=== PATIENT | male | born 1975 | race African-American/Black ===

== ENCOUNTER 2019-05-31 07:39 | Emergency (ER) | payer MEDICAID ==
[~2019-05-31] VITALS: Ht 172.7 cm; Wt 73.0 kg
[2019-05-31 08:46] LABS: BASOPHILS % 0.8 % (0.0-2.0); EOSINOPHILS % 0.6 % (0.0-5.0); HEMATOCRIT. 46.7 % (42.0-52.0); HEMOGLOBIN. 16.6 g/dL (14.0-18.0); LYMPHOCYTES % 28.5 % (20.0-50.0); MEAN CORPUSCULAR HEMOGLOBIN 32.9 pg (28.0-32.0); MEAN CORPUSCULAR VOLUME 92.6 fL (80.0-94.0); MEAN PLATELET VOLUME 8.4 fl (7.4-10.4); MONOCYTES % 9.6 % (2.0-8.0); NEUTROPHILS % 60.5 % (40.0-76.0); PLATELET 249 x1000/uL (130-400); RED BLOOD CELL COUNT 5.05 mill/uL (4.7-6.1); RED CELL DISTRIBUTION WIDTH 13.2 % (11.6-14.6)
[2019-05-31 10:08] LABS: CHLORIDE 106 mEq/L (98-107)
[2019-05-31] MEDS ORDERED: MORPHINE SULFATE 4 MG/ML CPJ (NOT FOR IM USE) IV ONE ×3 (11:15→19:15)
[2019-05-31] MEDS ORDERED: DEXAMETHASONE 4MG/ML 1ML VIAL IV ONE (11:15)
[2019-05-31] MEDS ORDERED: IOHEXOL-300 100 ML BOTTLE ONE (14:51)
[2019-05-31] MEDS ORDERED: PIPERACILLIN/TAZ 3.375G PREMIX 50 ML IV ONE ×2 (15:00→19:15)
[2019-05-31] MEDS ORDERED: VANCOMYCIN 1 G PREMIX 200 ML IV ONE (15:00)
[2019-05-31] MEDS ORDERED: FENTANYL CITRATE/PF 50MCG/ML 2ML VIAL IV ONE (15:15)
[2019-05-31] MEDS ORDERED: DEXT 5%/0.45% NACL KCL 20MEQ/L 1,000 ML IV ONE (19:10)
[2019-05-31] MEDS ORDERED: ONDANSETRON HCL 4MG/2ML INJ IV ONE (19:15)
[2019-05-31] MEDS ORDERED: PIPERACILLIN/TAZ 3.375G PREMIX 50 ML IV NR (22:00)
[2019-06-01] MEDS ORDERED: ONDANSETRON HCL 4MG/2ML INJ IV ONE (01:00)
[2019-06-01] MEDS ORDERED: MORPHINE SULFATE 4 MG/ML CPJ (NOT FOR IM USE) IV ONE ×2 (01:00→14:45)
[2019-06-01] MEDS ORDERED: DEXT 5%/0.45% NACL KCL 20MEQ/L 1,000 ML IV ONE (03:15)
[2019-06-01] MEDS: VANCOMYCIN 1 G PREMIX 200 ML IV SCH ×2 (03:30→14:10)
[2019-06-01 16:00] VITALS: BP 128/98
== END 2019-06-01 16:47 | disposition short-term general hospital (02) ==
LOC: ER 07:54
DX: J05.10 Acute epiglottitis without obstruction (principal); F12.10 Cannabis abuse, uncomplicated; Z75.1 Person awaiting admission to adequate facility elsewhere
CPT/HCPCS: 36415; 70360; 70490; 70491; 71045; 80053; 85025; 87040; 87070; 87430; 96365; 96366; 96367; 96368; 96375; 96376; 99291; J1100; J2270; J2405; J2543; J3010; J3370; Q9967